=== PATIENT | male | born 1970 | race Caucasian/White ===

== ENCOUNTER 2017-07-02 14:04 | Observation (INO) | payer OTHER ==
[~2017-07-02] VITALS: Ht 190.5 cm; Wt 85.0 kg
[2017-07-02 14:05] VITALS: BP 142/86; PULSE 72; RESP 12; TEMP 98.1; O2SAT 98
--- NOTE | 2017-07-02 14:10 | PD ---
Physical Exam Date Seen by Provider: Jul 02, 2017 Time Seen by Provider: 14:08 Narrative Pt presents to the ED for evaluation of chest pain. Pain is minimal per patient , in midsternal area. He was sent by urgent care. Pt states he had peaked T waves on his EKG while in the urgent care center, [place]. Pt denies any SOB , abd pain, fevers, chills. VSS, awaiting bed placement. Data Data Last Documented VS Vital Signs Date Time Temp Pulse Resp B/P Pulse Ox O2 Delivery O2 Flow Rate FiO2 07/02/17 14:05 98.1 72 12 142/86 98 MDM Supervised Visit with FORTINO: Charleen Cain Jul 02, 2017 14:10
[2017-07-02] MEDS ORDERED: SODIUM CHLORIDE 0.9% FLUSH 10 ML FLUSH IVF PRN (14:15)
--- NOTE | 2017-07-02 14:51 | RADRPT ---
EXAM DATE/TIME: 07/02/2017 14:20 [place] COMPARISON: No previous studies available for comparison. INDICATIONS : Complains of tightness in chest. MEDICAL HISTORY : None. SURGICAL HISTORY : None. ENCOUNTER: Initial ACUITY: 4 - 6 days PAIN SCORE: 0/10 LOCATION: Bilateral chest FINDINGS: PA and lateral views of the chest demonstrate a normal-sized cardiac silhouette. There is no effusion , consolidation, or pneumothorax. The bones and soft tissues demonstrate no acute abnormality. CONCLUSION: No acute cardiopulmonary abnormality is identified. Semaj Meyer MD on July 02, 2017 at 14:48 Board Certified Radiologist. This report was verified electronically.
[2017-07-02 15:09] LABS: AUTOMATED NEUTROPHIL # 4.1 TH/MM3 (1.8-7.7); BASOPHIL % 0.7 % (0.0-2.0); EOSINOPHIL # 0.1 TH/MM3 (0-0.4); EOSINOPHIL % 1.2 % (0.0-4.0); HEMATOCRIT 47.1 % (39.0-51.0); HEMO FLAGS DIFF FINAL; LYMPH % 26.7 % (9.0-44.0); LYMPHOCYTE # 1.8 TH/MM3 (1.0-4.8); MEAN CELL VOLUME 92.4 FL (80.0-100.0); MEAN CORPUSCULAR HEMOGLOBIN 30.9 PG (27.0-34.0); MEAN CORPUSCULAR HGB CONC 33.4 % (32.0-36.0); MONO % 10.1 % (0.0-8.0); NEUT % 61.3 % (16.0-70.0); PLATELET COUNT 291 TH/MM3 (150-450); RED BLOOD COUNT 5.09 MIL/MM3 (4.50-5.90); RED CELL DISTRIBUTION WIDTH 13.2 % (11.6-17.2); WHITE BLOOD COUNT 6.6 TH/MM3 (4.0-11.0)
[2017-07-02 15:16] LABS: APTT (PATIENT) 27.4 SEC (24.3-30.1); PROTHROMBIN TIME - PATIENT 10.6 SEC (9.8-11.6)
--- NOTE | 2017-07-02 15:19 | PD ---
HPI Chief Complaint: Chest Pain Time Seen by Provider: 15:19 Travel History International Travel<30 days: No Contact w/Intl Traveler<30days: No Traveled to known affect area: No History of Present Illness HPI 46-year-old male with no significant medical history presents to the emergency department for evaluation of a chest pressure intermittently occurring with activity over the last 5 days. Patient states he at first thought it may have been a muscle strain, but he could not reproduce it with movement or palpation. Patient initially went to the urgent care where he is noted to have spiked T waves, so they sent him here to the emergency department. He states while he is at rest it does not occur, but once he starts doing any type of activity it comes on. It is very short-lived and resolved on its own. Denies any association of breath. He dates it is not a pain and it does not radiate anywhere, rather it maintains in the substernal region. There is no nausea or vomiting. No episodes of diaphoresis or sensation of lightheadedness. Patient does smoke tobacco cigarettes occasionally, after smoking consistently for several years. Denies illicit drug use. No recent illnesses, fever, or chills.. His father did have a heart attack in his 50s. Otherwise the patient has no known risk factors. [facility] Past Medical History Medical History: Denies Significant Hx Social History Alcohol Use: No Tobacco Use: Yes Substance Use: No Allergies-Medications (Allergen,Severity, Reaction): Coded Allergies: No Known Allergies (Unverified , 07/02/17) Reported Meds & Prescriptions Reported Meds & Active Scripts Active No Active Prescriptions or Reported Medications Review of Systems Except as stated in HPI: all other systems reviewed are Neg Physical Exam Narrative GENERAL: Well-nourished male patient, ambulatory and in no acute distress SKIN: Focused skin assessment warm/dry. HEAD: Atraumatic. Normocephalic. EYES: Pupils equal and round. No scleral icterus. No injection or drainage. ENT: No nasal bleeding or discharge. Mucous membranes pink and moist. NECK: Trachea midline. No JVD. CARDIOVASCULAR: Regular rate and rhythm. No murmur appreciated. RESPIRATORY: No accessory muscle use. Clear to auscultation. Breath sounds equal bilaterally. GASTROINTESTINAL: Abdomen soft, non-tender, nondistended. Hepatic and splenic margins not palpable. MUSCULOSKELETAL: No obvious deformities. No clubbing. No cyanosis. No edema. NEUROLOGICAL: Awake and alert. No obvious cranial nerve deficits. Motor grossly within normal limits. Normal speech. PSYCHIATRIC: Appropriate mood and affect; insight and judgment normal. Data Data Last Documented VS Vital Signs Date Time Temp Pulse Resp B/P Pulse Ox O2 Delivery O2 Flow Rate FiO2 07/02/17 15:23 77 20 146/91 99 07/02/17 14:05 98.1 Orders Electrocardiogram (07/02/17 ) Ckmb (Isoenzyme) Profile (07/02/17 14:10) Complete Blood Count With Diff (07/02/17 14:10) Comprehensive Metabolic Panel (07/02/17 14:10) Magnesium (Mg) (07/02/17 14:10) Prothrombin Time / Inr (Pt) (07/02/17 14:10) Act Partial Throm Time (Ptt) (07/02/17 14:10) Troponin I (07/02/17 14:10) Lipase (07/02/17 14:10) Sodium Chloride 0.9% Flush (Ns Flush) (07/02/17 14:15) Chest, Pa & Lat (07/02/17 14:10) CKMB (07/02/17 14:31) CKMB% (07/02/17 14:31) Aspirin Chew (Aspirin Chew) (07/02/17 15:45) Admit Order (Ed Use Only) (07/02/17 15:34) Activity Bed Rest With Brp (07/02/17 15:34) Vital Signs (Adult) Q4H (07/02/17 15:34) Cardiac Rhythm .As Directed (07/02/17 15:34) Notify Dr: Other .PRN (07/02/17 15:34) Notify . Parameters (07/02/17 15:34) Resp Oxygen Nasal Cannula (07/02/17 ) Diet Npo (07/03/17 Breakfast) Diet Heart Healthy (07/02/17 Dinner) Ckmb (Isoenzyme) Profile (07/02/17 17:30) Ckmb (Isoenzyme) Profile (07/02/17 20:30) Troponin I (07/02/17 17:30) Troponin I (07/02/17 20:30) Electrocardiogram (07/02/17 17:30) Electrocardiogram (07/02/17 20:30) ^ Obtain (07/02/17 15:34) Sodium Chloride 0.9% Flush (Ns Flush) (07/02/17 15:45) Sodium Chloride 0.9% Flush (Ns Flush) (07/02/17 21:00) Acetaminophen (Tylenol) (07/02/17 15:45) Ondansetron Inj (Zofran Inj) (07/02/17 15:45) [employer] Tester / Telemetry DANE.Q8H (07/02/17 15:34) Roman Bilateral/Knee High DANE.QSHIFT (07/02/17 15:34) Labs Laboratory Tests Test 07/02/17 14:31 White Blood Count 6.6 TH/MM3 Red Blood Count 5.09 MIL/MM3 Hemoglobin 15.7 GM/DL Hematocrit 47.1 % Mean Corpuscular Volume 92.4 FL Mean Corpuscular Hemoglobin 30.9 PG Mean Corpuscular Hemoglobin 33.4 % Concent Red Cell Distribution Width 13.2 % Platelet Count 291 TH/MM3 Mean Platelet Volume 7.8 FL Neutrophils (%) (Auto) 61.3 % Lymphocytes (%) (Auto) 26.7 % Monocytes (%) (Auto) 10.1 % Eosinophils (%) (Auto) 1.2 % Basophils (%) (Auto) 0.7 % Neutrophils # (Auto) 4.1 TH/MM3 Lymphocytes # (Auto) 1.8 TH/MM3 Monocytes # (Auto) 0.7 TH/MM3 Eosinophils # (Auto) 0.1 TH/MM3 Basophils # (Auto) 0.0 TH/MM3 CBC Comment DIFF FINAL Differential Comment Prothrombin Time 10.6 SEC Prothromb Time International 1.0 RATIO Ratio Activated Partial 27.4 SEC Thromboplast Time Sodium Level 139 MEQ/L Potassium Level 3.9 MEQ/L Chloride Level 103 MEQ/L Carbon Dioxide Level 26.1 MEQ/L Anion Gap 10 MEQ/L Blood Urea Nitrogen 9 MG/DL Creatinine 1.16 MG/DL Estimat Glomerular Filtration 68 ML/MIN Rate Random Glucose 103 MG/DL Calcium Level 9.3 MG/DL Magnesium Level 2.2 MG/DL Total Bilirubin 0.7 MG/DL Aspartate Amino Transf 15 U/L (AST/SGOT) Alanine Aminotransferase 24 U/L (ALT/SGPT) Alkaline Phosphatase 68 U/L Total Creatine Kinase 115 U/L Creatine Kinase MB 1.0 NG/ML Troponin I LESS THAN 0.02 NG/ML Total Protein 8.3 GM/DL Albumin 4.8 GM/DL Lipase 157 U/L [facility] Medical Decision Making Medical Screen Exam Complete: Yes Emergency Medical Condition: Yes Medical Record Reviewed: Yes Differential Diagnosis ACS versus pleuritic pain versus chest wall pain versus anxiety versus indigestion Narrative Course 46-year-old male presents to the emergency department for evaluation. Patient appears without distress. His vital signs are stable. EKGs reviewed by my attending physician in the patient does have peaked T waves. No ST elevation or depression. He is given aspirin here in emergency department. Laboratory Tests Test 07/02/17 14:31 White Blood Count 6.6 TH/MM3 Red Blood Count 5.09 MIL/MM3 Hemoglobin 15.7 GM/DL Hematocrit 47.1 % Mean Corpuscular Volume 92.4 FL Mean Corpuscular Hemoglobin 30.9 PG Mean Corpuscular Hemoglobin 33.4 % Concent Red Cell Distribution Width 13.2 % Platelet Count 291 TH/MM3 Mean Platelet Volume 7.8 FL Neutrophils (%) (Auto) 61.3 % Lymphocytes (%) (Auto) 26.7 % Monocytes (%) (Auto) 10.1 % Eosinophils (%) (Auto) 1.2 % Basophils (%) (Auto) 0.7 % Neutrophils # (Auto) 4.1 TH/MM3 Lymphocytes # (Auto) 1.8 TH/MM3 Monocytes # (Auto) 0.7 TH/MM3 Eosinophils # (Auto) 0.1 TH/MM3 Basophils # (Auto) 0.0 TH/MM3 CBC Comment DIFF FINAL Differential Comment Prothrombin Time 10.6 SEC Prothromb Time International 1.0 RATIO Ratio Activated Partial 27.4 SEC Thromboplast Time Sodium Level 139 MEQ/L Potassium Level 3.9 MEQ/L Chloride Level 103 MEQ/L Carbon Dioxide Level 26.1 MEQ/L Anion Gap 10 MEQ/L Blood Urea Nitrogen 9 MG/DL Creatinine 1.16 MG/DL Estimat Glomerular Filtration 68 ML/MIN Rate Random Glucose 103 MG/DL Calcium Level 9.3 MG/DL Magnesium Level 2.2 MG/DL Total Bilirubin 0.7 MG/DL Aspartate Amino Transf 15 U/L (AST/SGOT) Alanine Aminotransferase 24 U/L (ALT/SGPT) Alkaline Phosphatase 68 U/L Total Creatine Kinase 115 U/L Creatine Kinase MB 1.0 NG/ML Troponin I LESS THAN 0.02 NG/ML Total Protein 8.3 GM/DL Albumin 4.8 GM/DL Lipase 157 U/L Last Impressions Chest X-Ray 07/02/17 1410 Signed Impressions: Service Date/Time: Sunday, July 02, 2017 14:20 - CONCLUSION: No acute cardiopulmonary abnormality is identified. Semaj Meyer MD Patient will be admitted observation of the chest pain center for serial troponins and other cardiology evaluation. Patient is in agreement with this plan of care. Diagnosis Primary Impression: Chest pressure Admitting Information Admitting Physician Requests: Observation Scripts No Active Prescriptions or Reported Meds Condition: Stable Safia Portillo Jul 02, 2017 15:19
[2017-07-02 15:23] VITALS: BP 146/91; PULSE 77; RESP 20; O2SAT 99
[2017-07-02 15:25] LABS: ALT (GPT) 24 U/L (12-78); ANION GAP 10 MEQ/L (5-15); AST (GOT) 15 U/L (15-37); BICARBONATE 26.1 MEQ/L (21.0-32.0); BLOOD UREA NITROGEN 9 MG/DL (7-18); CHLORIDE 103 MEQ/L (98-107); GLOMERULAR FILTRATION RATE 68 ML/MIN (>89); MAGNESIUM 2.2 MG/DL (1.5-2.5); POTASSIUM 3.9 MEQ/L (3.5-5.1); SODIUM (NA) 139 MEQ/L (136-145)
[2017-07-02 15:28] LABS: ALKALINE PHOSPHATASE 68 U/L (45-117); CREATINE KINASE 115 U/L (39-308); TOTAL BILIRUBIN ADULT 0.7 MG/DL (0.2-1.0)
[2017-07-02] MEDS ORDERED: ASPIRIN 81 MG CHEW TAB CHEW ONE (15:45)
[2017-07-02] MEDS ORDERED: SODIUM CHLORIDE 0.9% FLUSH 10 ML FLUSH IV FLUSH PRN (15:45)
[2017-07-02] MEDS ORDERED: ACETAMINOPHEN 500 MG CPLT PO PRN (15:45)
[2017-07-02] MEDS ORDERED: ONDANSETRON HCL 4 MG/2 ML VIAL IV PRN (15:45)
[2017-07-02 18:23] LABS: CREATINE KINASE 111 U/L (39-308)
[2017-07-02 18:35] LABS: CKMB 0.9 NG/ML (0.5-3.6)
[2017-07-02 20:47] VITALS: BP 120/73; PULSE 72; RESP 18; TEMP 99; O2SAT 99
[2017-07-02] MEDS: SODIUM CHLORIDE 0.9% FLUSH 10 ML FLUSH IV FLUSH SCH (21:00)
[2017-07-02 21:06] VITALS: O2SAT 98
[2017-07-02 21:10] LABS: CREATINE KINASE 87 U/L (39-308)
[2017-07-02 21:16] VITALS: PULSE 63
[2017-07-03] VITALS (7 sets, daily range): BP systolic 118–125; BP diastolic 67–80; PULSE 60–71; RESP 16–18; TEMP 98.2–99.2; O2SAT 98–99
[2017-07-03] MEDS ORDERED: NITROGLYCERIN 0.4 MG SL 25 TABS/BTL SL PRN (07:45)
--- NOTE | 2017-07-03 08:19 | HHI.HP ---
HPI Primary Care Physician No Primary Care Physician Chief Complaint Chest pain History of Present Illness 46-year-old male with no significant past medical history presents to the emergency room for further evaluation of chest tightness. Onset 5 days ago. Location right anterior chest, described as tightness. No associated symptoms. No radiation. Duration seconds. No particular movement or position makes pain better or worse. Does not hurt to take a deep breath. No known injury or trauma to affected area. Denies similar pain in the past. Evaluated at an urgent care clinic. EKG completed there showed peaked T waves and was directed to come to ER for further testing. States the only reason he went to urgent care was because people at work were discussing heart attack symptoms and he became concerned. Reporting he initially felt discomfort related to musculoskeletal issue. Review of Systems General: No fatigue,weakness, fever, chills, or recent illness. Has been in his general state of health. HEENT: No LUCAS, no nasal congestion or drainage CV: As stated above. No current CP or pressure. RESP: No SOB, cough, of history of asthma. [place] mild chest congestion in the mornings last week. GI: No nausea, vomiting, bowel changes, diarrhea, or constipation. No change in appetite. : No dysuria EXT: No lower leg edema MS: No discomfort or change in ROM, no known injury or trauma to affected area. NEURO: No difficulty with balance, LOC, motor/sensory deficits PSYCH: No anxiety, depression, or situational stress. Endorses he becomes highly anxious with any medical issues and reports "I could faint when others discuss medical problems." Past Family Social History Allergies: Coded Allergies: No Known Allergies (Unverified , 07/02/17) Past Medical History None Past Surgical History None Reported Medications Active No Active Prescriptions or Reported Medications or Supplements Active Ordered Medications Current Medications Medications (Trade) Dose Ordered Sig/Niranjan Route Start Time Stop Time Status Last Admin (NS Flush) 2 ml BID IV FLUSH 07/02/17 21:00 07/02/17 21:00 (Tylenol) 500 mg Q4H PRN PO 07/02/17 15:45 07/02/17 15:46 (Zofran Inj) 4 mg Q6H PRN IV 07/02/17 15:45 (Nitrostat Sl) 0.4 mg Q5M PRN SL 07/03/17 07:45 (Aspirin) 325 mg DAILY PO 07/03/17 09:00 Family History Noncontributory for early onset cardiovascular disease. Reports father had a cardiac event in his mid 60s although unsure of exact events. Social History No known diabetes, hypertension, hyperlipidemia, or personal coronary artery disease. Quit smoking a few years ago one pack/daily although endorses he smokes socially. 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 Cycles most days, although over the last 2 months time cycling has decreased. Past Cardiac Testing None Physical Exam Vital Signs Vital Signs Date Time Temp Pulse Resp B/P Pulse Ox O2 Delivery O2 Flow Rate FiO2 07/03/17 03:59 98.6 65 18 125/70 98 07/03/17 00:16 99.2 60 18 125/67 98 07/03/17 00:07 61 07/02/17 21:16 63 07/02/17 21:06 98 07/02/17 20:47 99.0 72 18 120/73 99 07/02/17 15:23 77 20 146/91 99 07/02/17 14:05 98.1 72 12 142/86 98 Physical Exam GENERAL: Alert WN, WD, NAD, pleasant, male HEAD: NC, AT NECK: Supple, no masses, trachea midline CV: RRR, without murmur, rub, gallop, no JVD, S1-S2 no S3-S4. No carotid bruits. RESP: Clear lungs throughout bilateral, no crackles, wheeze, rhonchi, symmetrical chest rise, nonlabored, able to speak in full sentences ABD: Soft, NT, ND, no masses, positive bowel tones BACK: No CVAT, no scoliosis EXT: Pulses +24, no dependent edema MS: Normal tone 4 extremities, nontender, no obvious deformities, full range of motion NEURO: CN II through CN XII grossly intact, motor strength 5/5, gait WNL PSYCH: A+O 3, pleasant affect, appropriate speech, appropriate mood and affect , insight and judgment, mildly anxious SKIN: Normal turgor, normal texture, no lesions, no rashes, brisk cap refill, even hair distribution Laboratory Laboratory Tests Test 07/02/17 07/02/17 07/02/17 14:31 17:24 20:30 White Blood Count 6.6 Red Blood Count 5.09 Hemoglobin 15.7 Hematocrit 47.1 Mean Corpuscular Volume 92.4 Mean Corpuscular Hemoglobin 30.9 Mean Corpuscular Hemoglobin 33.4 Concent Red Cell Distribution Width 13.2 Platelet Count 291 Mean Platelet Volume 7.8 Neutrophils (%) (Auto) 61.3 Lymphocytes (%) (Auto) 26.7 Monocytes (%) (Auto) 10.1 Eosinophils (%) (Auto) 1.2 Basophils (%) (Auto) 0.7 Neutrophils # (Auto) 4.1 Lymphocytes # (Auto) 1.8 Monocytes # (Auto) 0.7 Eosinophils # (Auto) 0.1 Basophils # (Auto) 0.0 CBC Comment DIFF FINAL Differential Comment Prothrombin Time 10.6 Prothromb Time International 1.0 Ratio Activated Partial 27.4 Thromboplast Time Sodium Level 139 Potassium Level 3.9 Chloride Level 103 Carbon Dioxide Level 26.1 Anion Gap 10 Blood Urea Nitrogen 9 Creatinine 1.16 Estimat Glomerular Filtration 68 Rate Random Glucose 103 Calcium Level 9.3 Magnesium Level 2.2 Total Bilirubin 0.7 Aspartate Amino Transf 15 (AST/SGOT) Alanine Aminotransferase 24 (ALT/SGPT) Alkaline Phosphatase 68 Total Creatine Kinase 115 111 87 Creatine Kinase MB 1.0 0.9 Troponin I LESS THAN 0.02 LESS THAN 0.02 LESS THAN 0.02 Total Protein 8.3 Albumin 4.8 Lipase 157 Result Diagram: 07/02/17 1431 07/02/17 1431 Imaging Last Impressions Chest X-Ray 07/02/17 1410 Signed Impressions: Service Date/Time: Sunday, July 02, 2017 14:20 - CONCLUSION: No acute cardiopulmonary abnormality is identified. Semaj Meyer MD Course EKGs NSR, normal axis, peaked T waves, no st segment changes Assessment and Plan Assessment and Plan #1 Chest pain-admitted to chest pain center. Ruled out with 3 sets of EKGs, cardiac enzymes, monitor overnight. Will be seen and evaluated by Dr. Ameya Espinosa. Most likely we'll complete a exercise stress test this a.m. Patient agreeable to plan of care. #2 Tobacco useshe'll encouraged and stressed the importance of tobacco sensation. Discussed and counseled patient to quit smoking. Encouraged him to establish with a PCP for medical management and preventative care. Yee Barboza Jul 03, 2017 08:19
[2017-07-03] MEDS ORDERED: ASPIRIN 325 MG TAB PO SCH (09:00)
[2017-07-03] MEDS: SODIUM CHLORIDE 0.9% FLUSH 10 ML FLUSH IV FLUSH SCH (09:00)
--- NOTE | 2017-07-03 11:25 | TR ---
Date Performed: 07/03/2017 Time Performed: 10:29:32 DOCTOR: Ameya Espinosa DRUG LIST: CLINICAL HISTORY: CHEST PAIN REASON FOR TEST: Chest pain REASON FOR ENDING: OBSERVATION: CONCLUSION: [place] protocol completed. Stopped sec to exceeding target heart rate and leg fatigue . Maximum XJ=544 Target HR Achieved=94.0% Maximum TB=957/88 Total Exercise Time=10:01. No reprop ches t pain. No ectopy. No st t waves changes to sugg ischemia. Good exercise tolerance. Normal bp respons e. Recovery quick and unremarkable. COMMENTS: Conclusion: Normal treadmill exercise. No evidence of ischemia.
--- NOTE | 2017-07-03 11:53 | HHI.DCPOC ---
Discharge Care Plan Diagnosis: (1) Atypical chest pain Goals to Promote Your Health * To prevent worsening of your condition and complications * To maintain your health at the optimal level Directions to Meet Your Goals Take your medications as prescribed Follow your dietary instruction Follow activity as directed Keep your appointments as scheduled Take your immunizations and boosters as scheduled If your symptoms worsen call your PCP, if no PCP go to Urgent Care Center or Emergency Room Smoking is Dangerous to Your Health. Avoid second hand smoke Call the 24-hour hour crisis hotline for domestic abuse at Yee Barboza Jul 03, 2017 11:53
--- NOTE | 2017-07-03 14:57 | EKG ---
Date Performed: 07/02/2017 Time Performed: 20:39:33 PTAGE: 46 years EKG: Sinus rhythm NORMAL ECG PREVIOUS TRACING : 07/02/2017 17.38 Since previous tracing, no significant change noted DOCTOR: Ameya Espinosa Interpretating Date/Time 07/03/2017 14:56:02
--- NOTE | 2017-07-03 14:59 | EKG ---
Date Performed: 07/02/2017 Time Performed: 17:38:26 PTAGE: 46 years EKG: Sinus rhythm TALL T-WAVES, SUGGESTS HYPERKALEMIA ABNORMAL ECG Since PREVIOUS TRACING , no significant change noted DOCTOR: Ameya Espinosa Interpretating Date/Time 07/03/2017 14:58:50
--- NOTE | 2017-07-03 15:02 | EKG ---
Date Performed: 07/02/2017 Time Performed: 14:26:24 PTAGE: 46 years EKG: Sinus rhythm WITH SINUS ARRHYTHMIA NORMAL ECG NO PREVIOUS TRACING is available for comparison DOCTOR: Ameya Espinosa Interpretating Date/Time 07/05/2017 07:58:41
== END 2017-07-03 13:53 | disposition home or self-care (01) ==
LOC: NEPC 14:04 → NEDA 15:38 → NEPFCDU 19:13
DX: R07.89 Other chest pain (principal); I49.8 Other specified cardiac arrhythmias; R94.31 Abnormal electrocardiogram [ECG] [EKG]; F17.200 Nicotine dependence, unspecified, uncomplicated; Z82.49 Family history of ischemic heart disease and other diseases of the circulatory system
CPT/HCPCS: 71020; 80053; 82550; 82552; 83690; 83735; 84484; 85025; 85610; 85730; 93005; 93017; 99285; G0378